=== PATIENT | female | born 1965 | race Caucasian/White ===

== ENCOUNTER 2017-08-24 15:30 | Outpatient (RCR) | payer OTHER, SELFPAY ==
--- NOTE | 2017-06-13 08:26 | HP.PTEVAL_ITS ---
Patient's Visit Information RUDI SHIN is a 52 year old F referred to Physical Therapy by MD EDD Casillas with a diagnosis of s/p L VALDEZ anterior approach in April. Date of Evaluation: 06/13/17 Physical Therapist: ELDON SneedT, OC - Visit Plan Frequency: 3x /Week Duration: 4 Weeks Plan: 3x/week for 3-4 weeks(anterior approach, precautions are ext adn abd/ext rotation combined.). 1. scar massage anterior hip. 2. Gentle hip flexor stretches and ITB stretches with rollout. 3. Teach machine based strength of hip and LE and progress to I. Include bike/elliptical to [place] for calorie burning. 4. Pt to get back to waterf ex class immediately. Monitor her tolerance to this. ice as needed. - Subjective Subjective: Apr 26 L VALDEZ, about 6 weeks ago after chronic L hip pain. 6 week f/ u went well. Pain is 0-1/10, not much pain at all. Having therapy at [facility] for 6 weeks and has now been discharged to transfer to [facility]. Scar is painfu to touch it and when she tries to work it. Has anterior incision. Sleep is good for the most part. ITB hurts to lie on L side. Has workout that she has been doing well with. Hard to do some of them on her own. 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 Will return tomorrow. Basic ADLs are OK, cannot lift heavy things/carry on L side. Hobbies : collect vinyl records and can do that. Enjoys staying activie with water ex class. - Pain L ITB Pain Intensity (Out of 10): 0 Pain Intensity Range: 0, 1 - Objective Walks I with L pelvis roatating BW at end stance due to hip flexor tightness on L. Steps are reciprocal without a problem. Trasnfers to and fro sit and supine I. Incsion is anterior L horizontal and moderate scarring apparent especially laterally. Incision is dry and healed well. Slightly numb distal to incsion. Strength in R LE 4+/5, L knee 4/5, L ankle 4+/5 adn L hip ext 4-, abd 3+, flexion 3+. Hip flexors mod tight L vs. R. ITB min tight on L adn tender distal to trochanter. Patient able to squat and recover without difficulty. - Goals Goal 1:: Walk without rotating pelvis L posterior in community. Goal Time Frame: 4-6 Weeks Goal 2:: patient back to water and gym workout I. Goal Time Frame: 4-6 Weeks Goal 3:: Back to wrok wihtout increased pain. Goal Time Frame: 2-4 Weeks - Rehabilitation Potential Physical Therapy Diagnosis: L hip stiffness and scar tissue limiting proepr mobility. Rehabilitation Potential: Fair - Anticipated Interventions Patient/Client Instruction: Educate patient on: Condition For the Purpose of:: To decrease pain, To increase ROM, To improve ability of physical actions for home/community/work/leisure, To improve gait and locomotor functions Therapeutic Exercise to Include: Strength training, Flexibilty training, Passive ROM, Active ROM For the Purpose of:: To decrease pain, To increase ROM, To improve ability of physical actions for home/community/work/leisure, To improve gait and locomotor functions Manual Therapy Techniques to Include: Scar massage, Soft tissue mobilization For the Purpose of:: To increase ROM, To improve ability of physical actions for home/community/work/leisure, To improve gait and locomotor functions Cryotherapy (ice pack, ice massage): Yes For the Purpose of:: To decrease swelling/inflammation Thank you for the opportunity to evaluate your patient. For Medicare and Medicare HMO plans, please review the plan of care and approve it. It will need to be FAXED BACK to us at [phone] for Medicare purposes. Please let me know if there are questions or concerns regarding this plan of care. Physician Signature: Date:
--- NOTE | 2017-07-05 17:19 | HP.PTREVAL_ITS ---
Ever Plasencia MD, It has been my pleasure to treat RUDI SHIN over the last 8 visits for s/p L VALDEZ anterior approach in April. Please see the progress note below for an update on the physical therapy plan of care! Subjective: Keeping strength and mobility. Improving. Scar not progressing as it stillg et tight first thing in am. Gets puffed up during the day. Scarred area is getting smaller. Pain in hip laterally intemittently, not as sore in ITB. Gets to 0-1/10. To doctor in July. Sleeping is better, can sleep on L side now with comfort. Objective/Function: ROM hip improving and more comfortable into hip extension. Scar looking improved but still proximal half of scar with mild to moderate scar tissue palpable. Strength in hip 4/5 but noticeable weakness descending steps eccentrically with L. OVERALL IMPROVING, STILL SOME WORK TO DO ON SCAR AND WITH FUNCTIONAL STRENGTH. Plan Plan: 2-3X/WEEK FOR 3 WEEKS FOR. 1. CONTINUE SCAR MASSAGE. 2. CONTINUE HIP FLEXOR STRETCHES. 3. FUNCTIONAL STRENGTH INCLUDING LUNGES, STIFFF LEGGED DEADLIFTS, SINGLE LEG SQUATS, DEEP SQUATS AND STEPS WITH WEIGHTS. pLEASE MAKE SURE PATIENT HAS MACHINE WORKOUT DOWN PAT I. Goals Goal 1:: Walk without rotating pelvis L posterior in community. Goal Time Frame: 4-6 Weeks Goal 2:: patient back to water and gym workout I. Goal Time Frame: 4-6 Weeks Goal Progress: Progressing Goal 3:: Back to wrok wihtout increased pain. Goal Time Frame: 2-4 Weeks Anticipated Interventions Patient/Client Instruction: Educate patient on: Condition For the Purpose of:: To decrease pain, To increase ROM, To improve ability of physical actions for home/community/work/leisure, To improve gait and locomotor functions Therapeutic Exercise to Include: Strength training, Flexibilty training, Passive ROM, Active ROM For the Purpose of:: To decrease pain, To increase ROM, To improve ability of physical actions for home/community/work/leisure, To improve gait and locomotor functions Manual Therapy Techniques to Include: Scar massage, Soft tissue mobilization For the Purpose of:: To increase ROM, To improve ability of physical actions for home/community/work/leisure, To improve gait and locomotor functions Cryotherapy (ice pack, ice massage): Yes For the Purpose of:: To decrease swelling/inflammation Please do not hesitate to contact me at [phone] by phone or Fax: if you have questions or concerns regarding this new plan of care! Sincerely, Huber Jones, DPT, OC
--- NOTE | 2017-07-27 16:29 | HP.PTREVAL_ITS ---
Ever Plasencia MD, It has been my pleasure to treat RUDI SHIN over the last 15 visits for s/p L VALDEZ anterior approach in April. Please see the progress note below for an update on the physical therapy plan of care! Subjective: Doing better with incision. No pain. Walking OK without limitations. activities are normal for the basics but has not carried 40# pellets up and down steps and does not think she could. Sleep is good. Work is normal. Camping will start soon. Walking on uneven. Objective/Function: 10 degrees ext, 110 flexion. 30 abduction. Steps are reciprocal and looking slightly weak on L but I without rail. L hip extension and abduction 4-, others in the hip 4 to 4+. Walks without gait deviations today but stating she needs to focus. Patient comfort level with gym exercise is not great and she remains weak in hip but is doing well otherwise. Plan Plan: 4 visits to ensure technique and progression with machines(glut ham, abd, add, leg press) and progression of RDL single leg, squat, inchworms, clamshells and bridging. Make sure technique is good and pt knows progressions. Pt will then f/u with PT after has been independent for 2 weeks. Goals Goal 1:: Walk without rotating pelvis L posterior in community. Goal Time Frame: 4-6 Weeks Goal Progress: Goal Met Goal 2:: patient back to water and gym workout I. Goal Time Frame: 4-6 Weeks Goal Progress: Goal Met Goal 3:: Back to wrok wihtout increased pain. Goal Time Frame: 2-4 Weeks Goal Progress: Goal Met Goal 4:: Pt feel confident and I with gym exercises that she can continue on own to improve strength. Goal Time Frame: 2-4 Weeks Goal Progress: NEW GOAL Anticipated Interventions Patient/Client Instruction: Educate patient on: Condition For the Purpose of:: To decrease pain, To increase ROM, To improve ability of physical actions for home/community/work/leisure, To improve gait and locomotor functions Therapeutic Exercise to Include: Strength training, Flexibilty training, Passive ROM, Active ROM For the Purpose of:: To decrease pain, To increase ROM, To improve ability of physical actions for home/community/work/leisure, To improve gait and locomotor functions Manual Therapy Techniques to Include: Scar massage, Soft tissue mobilization For the Purpose of:: To increase ROM, To improve ability of physical actions for home/community/work/leisure, To improve gait and locomotor functions Cryotherapy (ice pack, ice massage): Yes For the Purpose of:: To decrease swelling/inflammation Please do not hesitate to contact me at [phone] by phone or Fax: if you have questions or concerns regarding this new plan of care! Sincerely, Huber Jones, DPT, OC
--- NOTE | 2017-08-24 16:17 | HP.PTDCSUM_ITS ---
HP - PT D/C Summary It has been my pleasure to treat RUDI SHIN under orders from Ever Plasencia MD, for the diagnosis of s/p L VALDEZ anterior approach in April for a total of 21 visit(s). Discharge Date: 08/24/17 Please see the following information for a summary of their discharge status. - Subjective Subjective: No problems with workout. It is challenging. Lifted stuff this weekend to clean out daughter's basement. Carried 40# bag dogfood without even thinking about it. Sleeping is good. Activities pretty normal at home. Confident climbing on camper roof. - Pain L ITB Pain Intensity (Out of 10): 0 - Overall Improvement % Improvement: 90 - Objective Objective/Function: ROM L hip to 110 flexion gently, 30 abd, 10 extension with slight tightness in hip flexors. Walks without deficitis. Steps reciprocal without a problem, double steps slightly weak on left. - Goals Goal 1:: Walk without rotating pelvis L posterior in community. Goal Progress: Goal Met Goal 2:: patient back to water and gym workout I. Goal Progress: Goal Met Goal 3:: Back to [employer] wihtout increased pain. Goal Progress: Goal Met Goal 4:: Pt feel confident and I with gym exercises that she can continue on own to improve strength. Goal Progress: Goal Met - Plan Plan: D/C - D/C Information Discharge Comments: Pt doing well and ready to be on own. Will f/u with doctor in April per plan. If there are questions or concerns regarding this patient's physical therapy, please feel free to call me at [phone]. Thank you for the referral of this patient. Sincerely, Huber Jones, DPT, OC
== END 2017-08-24 19:00 | disposition home or self-care (01) ==
LOC: PT 15:30
PROVIDERS: Family Provider Family Medicine; PCP Family Medicine; Visit Provider Specialist
DX: Z96.642 Presence of left artificial hip joint (principal); M76.32 Iliotibial band syndrome, left leg
CPT/HCPCS: 97110; 97140; 97161; 97530

== ENCOUNTER 2019-11-30 10:00 | Outpatient (RCR) | payer OTHER, SELFPAY ==
--- NOTE | 2019-11-07 11:52 | HP.PTEVAL_ITS ---
Patient's Visit Information RUDI SHIN is a 54 year old F referred to Physical Therapy by Dr. Ever Plasencia MD with a diagnosis of L shoulder tendosynovitis. Date of Evaluation: 11/07/19 Physical Therapist: Huber Jones, DPT, OCS, CSCS - Visit Plan Frequency: 3x /Week Duration: 4-6 Weeks Plan: 3x/week for 3-6 for. US non thermal L supraspinatus. grade 1-2 g-h mobs L. scap, ostural ad RC strength on L. IF ES if pain at rest. Monitor for appropriate activitiy modification - Subjective L shoulder hurt insidiously. Last 6 months have hurt for no apparent reason. Massage did not help. Tried shifting desks at work. Pain is anterior L shoulder. Comfortable at rest after cortisone shot Tuesday. Sore from the shot today. Helped 50%. Pain this week to 6/10 before shot adn now 3/10 depending james ctivity. Worse wtih reaching forward, behind. Taking off shirt hurts. Lifting away from body hurts. Sleep is not a problem since the shot but did lie on L side prior to injection. Was hard to move L UE in bed. Denies numbness or tingling. Pain does shoot to elbow at times. 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 Activities at home are interrupted, no heavy lifting, litter box is tough. Dtr helps change litter. Carrying heavy bed sheets is hard. - Pain L shoulder Pain Intensity (Out of 10): 0 Pain Intensity Range: 0, 6 - Objective L shoulder tender at supraspinatus tendon max adn biceps tendon min. Posture is forward head and scapula and elevated scap B. + HK and neer on L, - ext rotatio n lag test, - labral, - drop arm. reflexes 2/3 bi adn tri B. AROM L shoulder end range IR and ER are painful as is long lever arm elevation. Full aROM though. Sensation WNl to gross light touch in UE. Strength is 4- in ext rotation L and painful, IR 4+, bi and tri 4+, elevation painful 4- on L and 4+ throughout on R. Scapual move well B except depression is limited and tight. C/S aROM WFL and without pain. - Goals Goal 1:: Full L shoulder AROM without pain. Goal Time Frame: 4-6 Weeks Goal 2:: Patient feel 80% better in pain levels to 1/10 at worst Goal Time Frame: 4-6 Weeks Goal 3:: Sleep without waking due to pain x 2 weeks. Goal Time Frame: 4-6 Weeks Goal 4:: I approp HEP and activitiy modification to avoid future activities. Goal Time Frame: 4-6 Weeks Goal 5:: Quick DASH of <15 Goal Time Frame: 4-6 Weeks - Rehabilitation Potential Physical Therapy Diagnosis: L supraspinatus tendonits Rehabilitation Potential: Good - Anticipated Interventions Patient/Client Instruction: Educate patient on: Condition, Plan of Care For the Purpose of:: To decrease pain, To increase ROM, To improve muscle performance and motor function, To increase tolerance to activity/condition/position, To improve ability of physical actions for home/community/work/leisure Therapeutic Exercise to Include: Strength training, Postural training, Flexibilty training, Dynamic Lumbar Stabilization, Scapular Strength/Stabilization For the Purpose of:: To decrease pain, To increase ROM, To improve muscle performance and motor function, To improve ability of physical actions for home/community/work/leisure Manual Therapy Techniques to Include: Mobilization, Soft tissue mobilization For the Purpose of:: To decrease pain, To increase ROM, To improve muscle performance and motor function, To improve ability of physical actions for home/community/work/leisure IF ES: Yes Cryotherapy (ice pack, ice massage): Yes Ultrasound (thermal/non thermal): Yes For the Purpose of:: To decrease pain Thank you for the opportunity to evaluate your patient. For Medicare and Medicare HMO plans, please review the plan of care and approve it. It will need to be FAXED BACK to us at [phone] for Medicare purposes. For Medicare only, by signing this I certify the plan of care. Please let me know if there are questions or concerns regarding this plan of care. Physician Signature: Date:
--- NOTE | 2019-11-30 10:38 | HP.PTDCSUM_ITS ---
It has been my pleasure to treat RUDI SHIN referred by Dr. Ever Plasencia MD, with the diagnosis of L shoulder tendosynovitis for a total of 8 visit(s). Discharge Date: 11/30/19 Please see the following information for a summary of their discharge status. Subjective: Better. Less pain and can sleep at night. Pain currently is rare 1/10. ) currently adn all week. Reaching out with weights. Activites are pretty normal. Winter will be the test with 40# bags. Doing HEP 3x15 L shoulder Pain Intensity (Out of 10): 0 % Improvement: 99 Objective/Function: Full aROM without pain today. Strength is good in neutral position, slight pain with IR/ER at 80 abduction but transient. Moving well adn happy with progress and will cotninue via HEP. Goal 1:: Full L shoulder AROM without pain. Goal Progress: Goal Met Goal 2:: Patient feel 80% better in pain levels to 1/10 at worst Goal Progress: Goal Met Goal 3:: Sleep without waking due to pain x 2 weeks. Goal Progress: Goal Met Goal 4:: I approp HEP and activitiy modification to avoid future activities. Goal Progress: Goal Met Goal 5:: Quick DASH of <15 Plan: d/information technology instructor HEP If there are questions or concerns regarding this patient's physical therapy, please feel free to call me at [phone]. Thank you for the referral of this patient. Sincerely, Huber Jones, DPT, OCS, CSCS
== END 2019-11-30 19:00 | disposition home or self-care (01) ==
LOC: PT 10:00
PROVIDERS: PCP Internal Medicine; Referring Provider Specialist; Visit Provider Specialist
DX: M65.812 Other synovitis and tenosynovitis, left shoulder (principal); M25.512 Pain in left shoulder; R53.1 Weakness
CPT/HCPCS: 97035; 97110; 97140; 97161; 97164

== ENCOUNTER 2021-04-10 09:00 | Outpatient (RCR) | payer OTHER, SELFPAY ==
--- NOTE | 2021-03-18 07:55 | HP.OTEVAL_ITS ---
Patient's Visit Information RUDI SHIN is a 56 year old F, referred to Occupational Therapy by SANCHEZ GUTIERREZ, with a diagnosis of ganglion cyst. Date of Evaluation: 03/17/21 Occupational Therapist: Sima Gardner, MALIKA/Pascale, CHT - Subjective This 56 year old female was seen for OT eval with dx of ganglion cyst of volar aspect of right wrist. occt. 2020. states 2008 initial ganglion was removed- order for increase wrist ROM and strength without restriction to pain tolerance , wrist brace when active scar and soft tissue mobilization and modalities for pain. pt stats she works at [employer]. pt states she would like to return to her PLOF- - Pain right hand 1 - ROM Wrist: right 60/50 left 75/75 - Strength Associate Account Executive: right 40# left 60# Lateral Pinch: right 8# left 8# Tripod Pinch: right 4# left 18# - Sensation Sensation Comments: denies - Quick DASH-Disab of Arm,Shoulder& Hand Quick DASH Score: 78.3325 - Goals Goal:: pt will demo a increase in right medical artist by 10# or greater by d.c to increase pts ind. with ADLs and IADLS. Pt will demo an increase in lateral and tripod pinch by 2# to increase pts independent with opening baggies, containers at PLOF by D/C. Goal:: Pt will demo an increase in wrist ROM equal to unaffected wrist to return pt to PLOF with grooming, dressing and home mtg tasks by D/C. Goal:: Pt will report pain no greater than 1/10 with use of affected hand with BADLs and IADLs by d/c. Goal:: Pt will demo understanding of scar mtg. by end of 2nd session to increase tissue extensibility to limit scar adhesions and allow full tendons function by d/c. Pt will demo a decrease is scar sensitivity to tolerate wearing long sleeve shirts by D/c. - Rehabilitation General Assessment: pt s/p 2 weeks 4 day from ganglion cyst removal from STT joint and adhering to FCR. pt demo with limited ROM and strength decreasing her ind. with ADLs and IADls - pt demo need for skilled OT services 2-3x week for 6 weeks to return pt to PLOF. Today therapist ed pt on AROM, AAROM and scar mtg. pt demo understanding of given exercise and agrees to POC. Rehabilitation Potential: Good - Anticipated Interventions A/AAROM/PROM, Strengthening, Scar Care, Desensitization, Sensory Retraining, Modalities, Ergonomic Education, Education re assistive Equipment, Education re Diagnosis, Home Program - Visit Plan Frequency: 2-3x /Week TEXT: Thank you for the opportunity to evaluate your patient. For Medicare and Medicare HMO plans, please review the plan of care and approve it. It will need to be FAXED BACK to us at [phone] for Medicare purposes. Please let me know if there are questions or concerns regarding this plan of care. Physician Signature: Date:
--- NOTE | 2021-04-08 12:19 | OTREVAL_ITS ---
SANCHEZ GUTIERREZ, It has been my pleasure to treat RUDI SHIN over the last 10 visits for ganglion cyst. Please see the progress note below for an update on the occupational therapy p michelle of care! Subjective: pt arrives to OT 6 weeks s/p from ganglion cyst removal- pt has returned to work and states work is going well- states she has to take more breaks due to fatigue holding the mouse and moving it at work. pt reports she continues to get a burring sensation and scar sensitivity is 50% better. Objective/Function: right wrist 65/65 this is increase from 60/50. right oil dispatcher strength 47# a increase from 40#. right lateral pinch 10# increase from 8#. right tripod pinch 6# increase from 4#. pt continues to have pain with daily use of her right UE with ADLs and IADLs pt reports nothing grater than 3/10. pt continues to have weakness and poor endurance for job tasks. will continue with PRE to assist pt to reach her PLOF. Plan Frequency: 1-2x /Week Duration: 3 Weeks Plan: Cont BTE and strengthening as tolerated- pt to continue with scar desensitization and return to normal use of right hand with ADLs and work tasks. Advised pt not to increase pain greater than 3/10 with use. pt demo understanding. Goals - Goals Patient Goals: Regain Mobility, Use Hand/Wrist/Arm Normally Again Goal:: pt will demo a increase in right oil dispatcher by 10# or greater by d.c to increase pts ind. with ADLs and IADLS. Pt will demo an increase in lateral and tripod pinch by 2# to increase pts independent with opening baggies, containers at PLOF by D/C. Goal:: Pt will demo an increase in wrist ROM equal to unaffected wrist to return pt to PLOF with grooming, dressing and home mtg tasks by D/C. Goal:: Pt will report pain no greater than 1/10 with use of affected hand with BADLs and IADLs by d/c. Goal:: Pt will demo understanding of scar mtg. by end of 2nd session to increase tissue extensibility to limit scar adhesions and allow full tendons function by d/c. Pt will demo a decrease is scar sensitivity to tolerate wearing long sleeve shirts by D/c. Anticipated Interventions Anticipated Interventions: A/AAROM/PROM, Strengthening, Scar Care, Desensitization, Sensory Retraining, Modalities, Ergonomic Education, Education re assistive Equipment, Education re Diagnosis, Home Program Please do not hesitate to contact me at [phone] by phone or if you have questions or concerns regarding this new plan of care! Sincerely, Sima Gardner, OTR/L, CHT
--- NOTE | 2021-04-10 09:31 | HP.OTDCSUM ---
It has been my pleasure to treat RUDI SHIN under orders from SANCHEZ GUTIERREZ, for the diagnosis of ganglion cyst for a total of 11 visit(s). Please see the following information for a summary of their discharge status. % Improvement: 50 Objective/Function: right wrist 65/65 this is increase from 60/50. right commercial real estate underwriter strength 47# a increase from 40#. right lateral pinch 10# increase from 8#. right tripod pinch 6# increase from 4#. pt continues to have pain with daily use of her right UE with ADLs and IADLs pt reports nothing grater than 3/10. pt continues to have weakness and poor endurance for job tasks. will continue with PRE to assist pt to reach her PLOF. Patient Goals: Regain Mobility, Use Hand/Wrist/Arm Normally Again Goal:: pt will demo a increase in right commercial real estate underwriter by 10# or greater by d.c to increase pts ind. with ADLs and IADLS. Pt will demo an increase in lateral and tripod pinch by 2# to increase pts independent with opening baggies, containers at PLOF by D/C. Goal:: Pt will demo an increase in wrist ROM equal to unaffected wrist to return pt to PLOF with grooming, dressing and home mtg tasks by D/C. Goal:: Pt will report pain no greater than 1/10 with use of affected hand with BADLs and IADLs by d/c. Goal:: Pt will demo understanding of scar mtg. by end of 2nd session to increase tissue extensibility to limit scar adhesions and allow full tendons function by d/c. Pt will demo a decrease is scar sensitivity to tolerate wearing long sleeve shirts by D/c. Plan: D/C Discharge Comments: pt was seen for 7 OT visits - pt has met goals in OT and currently d/c with HEP of scar mtg, PROM and PRE. pt demo understanding and agree to D.C If there are questions or concerns regarding this patient's occupational therapy, please fell free to call me at [phone]. Thank you for the referral of this patient. Sincerely, Sima Gardner, OTR/L, CHT
== END 2021-04-10 13:06 | disposition home or self-care (01) ==
LOC: OT 09:00
PROVIDERS: PCP Family Medicine
DX: M67.431 Ganglion, right wrist (principal); Z98.890 Other specified postprocedural states; M65.9 Synovitis and tenosynovitis, unspecified
CPT/HCPCS: 97035; 97110; 97140; 97166; 97530

== ENCOUNTER → 2021-11-05 | Outpatient (CLI) | payer OTHER, SELFPAY ==
[2021-11-05 13:11] LABS: Ferritin 39 ng/mL (8-252); T4 Free Direct 1.39 ng/dL (0.76-1.46); Thyroid Stim Hormone (TSH) 0.05 uIU/mL (0.358-3.74); Vitamin B12 232 pg/mL (211-911)
[2021-11-05 13:25] LABS: Hemoglobin A1c 5.5 % (3.8-5.6)
== END | disposition home or self-care (01) ==
LOC: BIMLAB 10:05
PROVIDERS: PCP Family Medicine; Referring Provider Internal Medicine Endocrinology, Diabetes & Metabolism; Visit Provider Internal Medicine Endocrinology, Diabetes & Metabolism
DX: E03.8 Other specified hypothyroidism (principal); E06.3 Autoimmune thyroiditis; E55.9 Vitamin D deficiency, unspecified; R53.83 Other fatigue; Z83.3 Family history of diabetes mellitus
CPT/HCPCS: 36415; 82306; 82607; 82728; 83036; 84439; 84443

== ENCOUNTER → 2022-04-16 | Outpatient (CLI) | payer OTHER, SELFPAY ==
[2022-04-16 14:03] LABS: T4 Free Direct 1.07 ng/dL (0.76-1.46); Thyroid Stim Hormone (TSH) 1.52 uIU/mL (0.358-3.74)
== END | disposition home or self-care (01) ==
LOC: LAB 11:42
PROVIDERS: PCP Family Medicine; Visit Provider Internal Medicine Endocrinology, Diabetes & Metabolism
DX: E03.8 Other specified hypothyroidism (principal); E06.3 Autoimmune thyroiditis
CPT/HCPCS: 36415; 84439; 84443

== ENCOUNTER → 2023-08-10 | Outpatient (CLI) | payer OTHER, SELFPAY ==
[2023-08-10 09:49] LABS: Hemoglobin A1c 5.8 % (3.8-5.6)
[2023-08-10 09:53] LABS: AST(SGOT) 16 U/L (15-37); Alanine Aminotransfer ALT/SGPT 30 U/L (13-56); Albumin, Serum 3.6 g/dL (3.2-5.0); Alkaline Phosphatase 81 U/L (45-117); Anion Gap 5 (5-15); BUN 14 mg/dL (7-18); BUN/Creat Ratio 15.8 RATIO (10-20); Calcium,Total 8.7 mg/dL (8.5-10.1); Chloride 106 mmol/L (98-107); Cholesterol 248 mg/dL (200); Creatinine, Serum 0.89 mg/dL (0.55-1.02); EST Glomerular Filtration Rate 69 mL/min (>60); Est Glom Filt Rate - Afr Amer 84 mL/min (>60); Globulin 3.6 g/dL (2.2-4.2); Glucose 98 mg/dL (74-106); High Density Lipoprotein 66 mg/dL; Protein, Total 7.2 g/dL (6.4-8.2); Sodium Level 138 mmol/L (136-145); T4 Free Direct 1.27 ng/dL (0.76-1.46); Thyroid Stim Hormone (TSH) 1.06 uIU/mL (0.358-3.74); Triglycerides 115 mg/dL; Very Low Density Lipoprotein 23 mg/dL (5-40)
== END | disposition home or self-care (01) ==
LOC: LAB 08:29
PROVIDERS: PCP Family Medicine; Referring Provider Internal Medicine Endocrinology, Diabetes & Metabolism; Visit Provider Internal Medicine Endocrinology, Diabetes & Metabolism
DX: I10 Essential (primary) hypertension (principal); E03.8 Other specified hypothyroidism; E06.3 Autoimmune thyroiditis; E78.5 Hyperlipidemia, unspecified; R73.09 Other abnormal glucose
CPT/HCPCS: 36415; 80053; 80061; 83036; 84439; 84443

== ENCOUNTER 2023-10-04 15:30 | Outpatient (RCR) | payer OTHER, SELFPAY ==
--- NOTE | 2023-08-03 15:48 | HP.OTEVAL_ITS ---
Patient's Visit Information Visit Information Visit Information: RUDI SHIN is a 58 year old F, referred to Occupational Therapy by JOEY WILLS, with a diagnosis of ganglion cysts removal. Date of Evaluation: 08/03/23 Occupational Therapist: Sima Gardner, SAMPSONR/Pascale, CHT Subjective Subjective: This 58 year old female was seen for OT eval with dx of Ganglion cyst of left wrist. Pt underwent excision of ganglion cyst on 07/22/23. had stitches out on 08/01/23. Pt states she is right handed pt is to return to work August 22 2023 - works 44 hour in a week [place] 3 days in office- pt is also doing Physical therapy for a fall she suffered at work in [place]. pt states she would just like to return to her PLOF with using bilateral hands with all ADls and IADLs. ADLs Comments: currently is helping with all ADls and IADls at this time. Pain left wrist/hand: Current Pain Intensity: 3 Pain Intensity Range: 5 ROM Wrist: right 65/70 left 35/40 pt states slight pulling sensation at incisions ROM Comments: full digital ROM Strength Advertising Executive: right 70# left NT Lateral Pinch: right 20# left NT Tripod Pinch: right 18# left NT Strength Comments: will test strength at week 4 s/p Quick DASH-Disab of Arm,Shoulder& Hand Quick DASH Score: 66.6650 Goals Goal:Daily scar massage when approriate: Yes Goal:ROM equal to unaffected hand: Yes Goal:Advertising Executive/Pinch strength at least 75% of unaffected hand: Yes Comment: will initiate at week s/p4 as pt shara. Goal:No pain with affected hand use: Yes Goal:Full use of affected hand in daily activities including work: Yes Goal:Decrease scar hypersensitivity: Yes Comment: to wear long sleeves and tolerate touch to scars Rehabilitation General Assessment: pt arrives 1 week and 5 days s/p from ganglion cysts removal. pt demo with limited left wrist ROM and scar sensitivity that has increased the need of assistance with her ADLs and IADLS. pt would benefit from skilled OT services 1-2x week for 4 weeks to return pt to her PLOF. Today therapist ed. pt on active range of motion, tendon glide and scar mtg. pt demo understanding and agree to POC. Rehabilitation Potential: Good Anticipated Interventions Anticipated Interventions: A/AAROM/PROM, Strengthening, Scar Care, Triggerpoint Release, Desensitization, Sensory Retraining, Modalities, Orthoses, Joint Protection/Energy Conservation, Ergonomic Education, ADL Training and Home Program Visit Plan Frequency: 1-2x /Week Duration: 4-6 Weeks General Plan: gain full ROM scar mtg wean out of brace PRE as shara at week 4 unless otherwise specified by TEXT: Thank you for the opportunity to evaluate your patient. For Medicare and Medicare HMO plans, please review the plan of care and approve it. It will need to be FAXED BACK to us at [phone] for Medicare purposes. Please let me know if there are questions or concerns regarding this plan of care. Physician Signature: Date:
--- NOTE | 2023-10-04 15:55 | HP.OTDCSUM_ITS ---
Discharge Summary D/C Summary: It has been my pleasure to treat RUDI SHIN under orders from JOEY WILLS, for the diagnosis of ganglion cysts removal for a total of 17 visit(s). Please see the following information for a summary of their discharge status. Overall Improvement % Improvement: 80 Objective Objective/Function: left wrist 65/[address] 20 left wrist UD 25 R Stock Grader:75# L Stock Grader: 65# increase from 50# L Tripod Grasp: 12# L Lateral Grasp: 10# pt demo great gains with ROM and strength. scar continues to be sensitive and this limits her with IADLs. pt agrees to with scar mtg. desensitization for her HEP. pt agrees with d/c. Goals Patient Goals: Regain Mobility, Use Hand/Wrist/Arm Normally Again and Be More Independent in ADLS Goal Progress: Goal Met Goal:Daily scar massage when approriate: Yes Goal Progress: Goal Met Goal:ROM equal to unaffected hand: Yes Goal Progress: Goal Met Goal:Stock Grader/Pinch strength at least 75% of unaffected hand: Yes Goal:No pain with affected hand use: Yes Goal Progress: Progressing Goal:Full use of affected hand in daily activities including work: Yes Goal Progress: Progressing Goal:Decrease scar hypersensitivity: Yes Goal Progress: Progressing Other Goal: 75-80% better Plan Plan: start BTE to increase construction materials tester wrist and forearm sup/pron D/C Information Discharge Comments: pt was seen for 17 OT sessions following cyst removal- pt made great gains with ROM and strength- pt continues to have pain at ulnar side of wrist ( little bit) but pt has returned to her ADLs and IADLs. Pt scar is sensitive and she will cont. with a HEP and desensitization- pt agree with d/c d/c sentence: If there are questions or concerns regarding this patient's occupational thera py, please fell free to call me at [phone]. Thank you for the referral of this patient. Sincerely, Sima Gardner, OTR/L, CHT
== END 2023-10-04 19:00 | disposition home or self-care (01) ==
LOC: OT 15:30
PROVIDERS: PCP Family Medicine
DX: M67.432 Ganglion, left wrist (principal); Z98.890 Other specified postprocedural states
CPT/HCPCS: 97110; 97140; 97166; 97530

== ENCOUNTER → 2024-08-06 | Outpatient (CLI) | payer OTHER, SELFPAY ==
[2024-08-06 11:23] LABS: ALB/GLOB Ratio 1.7 RATIO (0.9-2.4); AST(SGOT) 21 U/L (<=31); Alanine Aminotransfer ALT/SGPT 15 U/L (<=34); Albumin, Serum 4.3 g/dL (3.5-5.0); Alkaline Phosphatase 82 U/L (35-104); Anion Gap 12 (5-15); BUN 14 mg/dL (4-19); BUN/Creat Ratio 15.4 RATIO (10-20); Calcium,Total 9.3 mg/dL (7.6-11.0); Carbon Dioxide 26.2 mmol/L (21.0-32.0); Chloride 104 mmol/L (98-108); Cholesterol 187 mg/dL (<=200); Creatinine, Serum 0.88 mg/dL (0.70-1.20); EST Glomerular Filtration Rate 75 (>60); Globulin 2.6 g/dL (2.2-4.2); Glucose 97 mg/dL (70-99); High Density Lipoprotein 59 mg/dL; Low Density Lipoprotein Calc. 98 mg/dL; Protein, Total 6.9 g/dL (5.9-8.4); Sodium Level 142 mmol/L (133-145); Total Bilirubin 0.35 mg/dL (0.00-1.30); Triglycerides 152 mg/dL; Very Low Density Lipoprotein 30 mg/dL (5-40); cholesterol:hdl ratio screen 3.19
== END | disposition home or self-care (01) ==
PROVIDERS: PCP Family Medicine; Referring Provider Internal Medicine Cardiovascular Disease; Visit Provider Internal Medicine Cardiovascular Disease
DX: E78.5 Hyperlipidemia, unspecified (principal)
CPT/HCPCS: 36415; 80053; 80061

== ENCOUNTER → 2024-08-10 | Outpatient (CLI) | payer OTHER, SELFPAY ==
[2024-08-10 09:44] LABS: Thyroid Stim Hormone (TSH) 0.649 uIU/mL (0.300-4.200)
== END | disposition home or self-care (01) ==
LOC: LAB 08:33
PROVIDERS: PCP Family Medicine; Referring Provider Internal Medicine Endocrinology, Diabetes & Metabolism; Visit Provider Internal Medicine Endocrinology, Diabetes & Metabolism
DX: I10 Essential (primary) hypertension (principal); E03.8 Other specified hypothyroidism; E06.3 Autoimmune thyroiditis; E78.2 Mixed hyperlipidemia; R73.09 Other abnormal glucose
CPT/HCPCS: 36415; 84443

== ENCOUNTER 2024-11-15 15:30 | Outpatient (RCR) | payer OTHER, SELFPAY ==
--- NOTE | 2024-08-24 14:30 | HP.PTEVAL_ITS ---
Patient's Visit Information Visit Information Visit Information: RUDI SHIN is a 59 year old F referred to Physical Therapy by José Luis Regan MD with a diagnosis of R ankle peroneal tendonitis. Date of Evaluation: 08/24/24 Physical Therapist: Brandon Parham, PT, ATC Visit Plan Frequency: 2x /Week Duration: 4-6 Weeks Plan: R ankle PROM/mobs, distraction, gastroc rollout and hawksgrip, ECC or pr ogressive strengthening, and HEP Subjective Subjective: Pt reports she has had R ankle pain since fracturing her R ankle in 2022. Pt reports she had PT after that for several months, which she felt really good afterwards. Pt notes then she fell again on [employer] of last year where she sprained her ankle again. Pt notes she had PT for 13 visits afterwards, but no sucess this time. Pt notes she was referred to a different doctor. Pt reports now she has R ankle peroneal tendonitis and synovitis. Pt reports she has a lot of pain while trying to sleep now. Pt reports her R ankle cracks and pops a lot, which makes it feel better in the short time period, but the pain always returns. 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 Pt reports she has had xrays and an MRI which revealed the tendonitis and synovitis. Pt has stairs at home and can negotiate them reciprocally. Pt notes she was exercising prior to this injury, but notes she is unable to perform that for a prolonged period of time secondary to pain. Pt denies tingling or numbness in R LE. 2/10 pain while sitting here at rest, 6/10 at worst (when she is walking at work) Pain R ankle: Pain Intensity (Out of 10): 2 Pain Intensity Range: 6 Objective Objective: Neuro: B LE sensation is WNL to light touch. B patellar reflex= 3+/3 Palpation: Pt is tender with light touch throughout the distribution of the R peroneal tendon. Pain also on lateral calcaneous. No obvious deformity today. ROM: L ankle DF= 2, PF= 65; R ankle DF= -2, PF= 65 degrees MMT: L ankle DF= 31, PF= 44; R ankle DF= 21, PF= 41 #F Balance/Special Test Scores Lower Extremity Functional Score: 41 Goals Goal 1:: Decrease R ankle pain x 50% to aid with sleep Goal Time Frame: 4-6 Weeks Goal 2:: Increase R ankle DF ROM to 10 degrees to aid with decreasing pain Goal Time Frame: 4-6 Weeks Goal 3:: Increase R ankle DF strength to 25-30 #F to aid with increasing tolerance to ambulation Goal Time Frame: 4-6 Weeks Goal 4:: I with HEP Goal Time Frame: 4-6 Weeks Rehabilitation Potential Physical Therapy Diagnosis: Pt has R ankle pain, weakness, and limited DF ROM secondary to R ankle peroneal tendonitis Rehabilitation Potential: Good Anticipated Interventions Patient/Client Instruction: Educate patient on: Condition and Plan of Care For the Purpose of:: To improve self management Therapeutic Exercise to Include: Strength training, Endurance training, Balance training, Flexibilty training, Passive ROM and Active ROM For the Purpose of:: To decrease pain, To increase ROM and To improve muscle performance and motor function Text: Thank you for the opportunity to evaluate your patient. For Medicare and Medicare HMO plans, please review the plan of care and approve it. It will need to be FAXED BACK to us at [phone] for Medicare purposes. For Medicare only, by signing this I certify the plan of care. Please let me know if there are questions or concerns regarding this plan of care. Physician Signature: Date :
--- NOTE | 2024-10-22 16:44 | HP.PTREVAL ---
Re-Evaluation Intro: José Luis Regan MD, It has been my pleasure to treat RUDI SHIN over the last 16 visits for R ankle peroneal tendonitis. Please see the progress note below for an update on the physical therapy plan of care! Subjective Subjective: I am getting better. I would like to try this on my own for a while Objective Objective/Function: R ankle pain ranges from 1-5/10 R ankle DF ROM 4 degrees R ankle DF MMT 36 #F Pt is I with HEP Plan Plan Plan: Follow up or discharge in one month Balance/Gait/Functional tests Balance/Special Test Scores Lower Extremity Functional Score: 56 Goals Goals Goal 1:: Decrease R ankle pain x 50% to aid with sleep Goal Time Frame: 4-6 Weeks Goal Progress: Progressing Goal 2:: Increase R ankle DF ROM to 10 degrees to aid with decreasing pain Goal Time Frame: 4-6 Weeks Goal Progress: Progressing Goal 3:: Increase R ankle DF strength to 25-30 #F to aid with increasing tolerance to ambulation Goal Time Frame: 4-6 Weeks Goal Progress: Goal Met Goal 4:: I with HEP Goal Time Frame: 4-6 Weeks Goal Progress: Goal Met Anticipated Interventions Anticipated Interventions Patient/Client Instruction: Educate patient on: Condition and Plan of Care For the Purpose of:: To improve self management Therapeutic Exercise to Include: Strength training, Endurance training, Balance training, Flexibilty training, Passive ROM and Active ROM For the Purpose of:: To decrease pain, To increase ROM and To improve muscle performance and motor function Re-Evaluation Ending Re-evaluation ending: Please do not hesitate to contact me at [phone] by phone or if you have questions or concerns regarding this new plan of care! Sincerely, Brandon Parham, PT, ATC
--- NOTE | 2024-10-23 08:51 | HP.OTEVAL ---
Patient's Visit Information Visit Information Visit Information: RUDI SHIN is a 59 year old F, referred to Occupational Therapy by José Luis Regan MD, with a diagnosis of L deQuarvains. Date of Evaluation: 10/23/24 Occupational Therapist: Bridgett Triplett Subjective Subjective: pt presenting with trigger finger of L middle finger and DeQuarvains on L wrist. Surgery on 08/03 to release the trigger finger with difficulty to get full ROM with MP extension and pain along dorsal aspect of PIP/DIP joints in extension under pressure. pt with significant hx of cyst removals on both wrists. 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 c/o swelling and stiffness in L D3, increased pain and swelling in the morning. Not wearing night splints currently but advising to wear them to keep from clenching in a fisted position over night. ROM Forearm: WFL Wrist: WFL MP: L D3 -15/85 PIP: L D3 0/85 DIP: L D3 0/75 Strength Golf Superintendent: R 60#, L 34# Lateral Pinch: R 13#, L 10# Tip-to-Tip Pinch: R 12#, L 8# Edema Proximal Phalanx: L 6.5cm, R 5.9cm In-Hand Manipulation Finger to Palm Translation: Normal - Left Palm to Finger Translation: Mild - Left Quick DASH-Disab of Arm,Shoulder& Hand Quick DASH Score: 34.0900 Goals Goal:: pt to demo improved L bone process operator strength by 15# by d/c for greater ability to grasp items during ADL tasks using non dominant hand pt to demo improved L tip pinch strength by 2# for greater use during tool use tasks Goal:: pt to demo improved L D3 MP extension by 10* for greater use during keyboarding to reach top keys Goal:: pt to demo no more than 2/10 pain during daily activities or HEP tasks Goal:: pt to demo reduced edema at L D3 proximal phalanx by.3cm Goal:: pt to demo improved overall indep at home by reduced DASH score by 20 points Rehabilitation General Assessment: Pt here for s/p trigger finger surgery, script is reading [facility] however more c/o trigger finger surgery. Pt presenting with lingering scar tissue along L D3 flexor tissues preventing full MP extension which is limiting her function at work (typing). Pt with decreased bone process operator/pinch strength in L hand as well as increased swelling in L D3 proximal phalanx as compared to right hand. Pt wanting pain reduction along palm and increased digit extension to improve indpe and endurance at work. Pt would benefit from skills OT services x2/week for 4 weeks for greater improvement in swelling, AROM and strength to increase indep. Rehabilitation Potential: Good Anticipated Interventions Anticipated Interventions: A/AAROM/PROM, Strengthening, Edema Control, Massage, Triggerpoint Release and Joint Protection/Energy Conservation Visit Plan Frequency: 2x /Week Duration: 4 Weeks TEXT: Thank you for the opportunity to evaluate your patient. For Medicare and Medicare HMO plans, please review the plan of care and approve it. It will need to be FAXED BACK to us at [phone] for Medicare purposes. Please let me know if there are questions or concerns regarding this plan of care. Physician Signature: Date:
--- NOTE | 2024-10-23 08:51 | HP.OTEVAL ---
Patient's Visit Information Visit Information Visit Information: RUDI SHIN is a 59 year old F, referred to Occupational Therapy by José Luis Regan MD, with a diagnosis of L deQuarvains. Date of Evaluation: 10/23/24 Occupational Therapist: Bridgett Triplett Subjective Subjective: pt presenting with trigger finger of L middle finger and DeQuarvains on L wrist. Surgery on 08/03 to release the trigger finger with difficulty to get full ROM with MP extension and pain along dorsal aspect of PIP/DIP joints in extension under pressure. pt with significant hx of cyst removals on both wrists. 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 c/o swelling and stiffness in L D3, increased pain and swelling in the morning. Not wearing night splints currently but advising to wear them to keep from clenching in a fisted position over night. ROM Forearm: WFL Wrist: WFL MP: L D3 -15/85 PIP: L D3 0/85 DIP: L D3 0/75 Strength Manager Assisted Living: R 60#, L 34# Lateral Pinch: R 13#, L 10# Tip-to-Tip Pinch: R 12#, L 8# Edema Proximal Phalanx: L 6.5cm, R 5.9cm In-Hand Manipulation Finger to Palm Translation: Normal - Left Palm to Finger Translation: Mild - Left Quick DASH-Disab of Arm,Shoulder& Hand Quick DASH Score: 34.0900 Goals Goal:: pt to demo improved L paint roller covers supervisor strength by 15# by d/c for greater ability to grasp items during ADL tasks using non dominant hand pt to demo improved L tip pinch strength by 2# for greater use during tool use tasks Goal:: pt to demo improved L D3 MP extension by 10* for greater use during keyboarding to reach top keys Goal:: pt to demo no more than 2/10 pain during daily activities or HEP tasks Goal:: pt to demo reduced edema at L D3 proximal phalanx by.3cm Goal:: pt to demo improved overall indep at home by reduced DASH score by 20 points Rehabilitation General Assessment: Pt here for s/p trigger finger surgery, script is reading [employer] however more c/o trigger finger surgery. Pt presenting with lingering scar tissue along L D3 flexor tissues preventing full MP extension which is limiting her function at work (typing). Pt with decreased paint roller covers supervisor/pinch strength in L hand as well as increased swelling in L D3 proximal phalanx as compared to right hand. Pt wanting pain reduction along palm and increased digit extension to improve indpe and endurance at work. Pt would benefit from skills OT services x2/week for 4 weeks for greater improvement in swelling, AROM and strength to increase indep. Rehabilitation Potential: Good Anticipated Interventions Anticipated Interventions: A/AAROM/PROM, Strengthening, Edema Control, Massage, Triggerpoint Release and Joint Protection/Energy Conservation Visit Plan Frequency: 2x /Week Duration: 4 Weeks TEXT: Thank you for the opportunity to evaluate your patient. For Medicare and Medicare HMO plans, please review the plan of care and approve it. It will need to be FAXED BACK to us at [phone] for Medicare purposes. Please let me know if there are questions or concerns regarding this plan of care. Physician Signature: Date:
== END 2024-11-15 17:10 | disposition home or self-care (01) ==
LOC: OT 15:30
PROVIDERS: PCP Family Medicine; Referring Provider Orthopaedic Surgery Foot and Ankle Surgery; Visit Provider Orthopaedic Surgery Foot and Ankle Surgery
DX: M65.971 Unspecified synovitis and tenosynovitis, right ankle and foot (principal); M76.71 Peroneal tendinitis, right leg
CPT/HCPCS: 97035; 97110; 97140; 97161; 97165; 97530

== ENCOUNTER → 2024-12-28 | Outpatient (CLI) | payer OTHER, SELFPAY ==
[2024-12-28 09:45] LABS: CORTISOL AM 12.60 ug/dL (6.02-18.40)
== END | disposition home or self-care (01) ==
LOC: LAB 08:00
PROVIDERS: PCP Family Medicine; Referring Provider Nurse Practitioner Family; Visit Provider Nurse Practitioner Family
DX: R63.5 Abnormal weight gain (principal)
CPT/HCPCS: 36415; 82533

== ENCOUNTER → 2025-01-30 | Outpatient (CLI) | payer OTHER, SELFPAY | END | disposition home or self-care (01) | LOC: LABSPEC 16:01 | PROVIDERS: PCP Family Medicine; Referring Provider Nurse Practitioner Family; Visit Provider Nurse Practitioner Family | DX: Z12.4 Encounter for screening for malignant neoplasm of cervix (principal) | CPT/HCPCS: 87624; 88175; G0145 ==

== ENCOUNTER → 2025-02-06 | Outpatient (CLI) | payer OTHER, SELFPAY ==
--- NOTE | 2025-02-06 11:48 | US_ITS ---
PROCEDURE: PELVIC W/ TRANSVAGINAL 02/06/2025 REASON FOR EXAM: POST MENOPAUSAL BLEEDING TECHNIQUE: Procedure Code: [id number] Modality: US Procedure: PELVIC W/ TRANSVAGINAL COMPARISON: None FINDINGS: Uterus: 6.2 x 3.6 x 3.0 cm. 2 separate uterine fibroids are noted larger measures 1.5 cm Endometrium: Hyperechoic at 4 mm Right ovary: 3.4 x 2.9 x 2.3 cm, no suspicious mass, normal color Doppler flow Left ovary: Not visualized Other: No free fluid, bladder distends normally US/Pelvic w/ Transvaginal IMPRESSION: Small uterine fibroids Sonographically normal endometrium for age Sonographically normal right ovary Left ovary not visualized No free fluid Reading Location: [id number]
== END | disposition home or self-care (01) ==
LOC: US 11:47
PROVIDERS: PCP Family Medicine; Referring Provider Nurse Practitioner Family; Visit Provider Nurse Practitioner Family
DX: N95.0 Postmenopausal bleeding (principal)
CPT/HCPCS: 76830; 76856

== ENCOUNTER → 2025-02-08 | Outpatient (CLI) | payer OTHER, SELFPAY ==
[2025-02-08 10:17] LABS: Hematocrit 40.5 % (37-47); Hemoglobin 13.3 g/dL (12.0-15.0); Immature Granulocytes Count 0.020 X10^3/uL (0.0-0.0); Mean Corp Hgb Conc 32.8 g/dL (32-36); Mean Corpuscular Volume 95.3 fL (81-99); Mean Platelet Vol. 10.3 fl (6.2-12.0); NRBC Flagged by Analyzer 0 % (0-5); Platelet Count 277 K/mm3 (150-450); RBC Distribution Width CV 12.7 % (11.6-14.6); RBC Distribution Width SD 44.0 fl (35.1-43.9); Red Blood Count 4.25 M/mm3 (4.2-5.4); White Blood Count 4.5 K/mm3 (4.4-11.0)
[2025-02-08 10:47] LABS: AST(SGOT) 29 U/L (<=31); Alanine Aminotransfer ALT/SGPT 25 U/L (<=34); Albumin, Serum 4.5 g/dL (3.5-5.0); Alkaline Phosphatase 88 U/L (35-104); Anion Gap 13 (5-15); BUN 11 mg/dL (4-19); BUN/Creat Ratio 14.5 RATIO (10-20); Calcium,Total 9.4 mg/dL (7.6-11.0); Carbon Dioxide 23.1 mmol/L (21.0-32.0); Chloride 104 mmol/L (98-108); Cholesterol 222 mg/dL (<=200); Globulin 2.6 g/dL (2.2-4.2); Glucose 108 mg/dL (70-99); Low Density Lipoprotein Calc. 122 mg/dL; Potassium 4.4 mmol/L (3.3-5.1); Triglycerides 182 mg/dL; Very Low Density Lipoprotein 36 mg/dL (5-40); Vitamin D,25 Hydroxy 51.9 ng/mL (30-100); cholesterol:hdl ratio screen 3.50
== END | disposition home or self-care (01) ==
LOC: LAB 09:48
PROVIDERS: PCP Family Medicine; Referring Provider Nurse Practitioner Family; Visit Provider Nurse Practitioner Family
DX: Z00.01 Encounter for general adult medical examination with abnormal findings (principal); E55.9 Vitamin D deficiency, unspecified; R73.01 Impaired fasting glucose
CPT/HCPCS: 36415; 80053; 80061; 82306; 83036; 85025

== ENCOUNTER → 2025-02-20 | Outpatient (CLI) | payer OTHER, SELFPAY ==
--- NOTE | 2025-02-20 07:50 | BD_ITS ---
PROCEDURE: DEXA BONE DENSITY STUDY 02/20/2025 REASON FOR EXAM: F, age 59 y/o . Postmenopausal. TECHNIQUE: Procedure Code: BDDBD Modality: DX Procedure: DEXA BONE DENSITY STUDY COMPARISON: None FINDINGS: BMD and T-SCORES Lumbar spine: 0.926 g/cm2, T-score -1.1 Levels: L1 through L4 . Right femoral neck: 0.777 g/cm2, T-score -0.6 Femoral neck comparison data not recommended for monitoring change. Right total hip: 0.754 g/cm2, T-score -1.5 The World Health Organization has defined the following categories based on bone density: Normal bone density: T-score equal to or greater than -1.0 Osteopenia: T-score between -1.0 and -2.5 Osteoporosis: T-score equal to or less than -2.5 FRAX (or Comparable) Fracture Risk Assessment: 10 Year Probability of Fracture: Major Osteoporotic Fracture: 17% Hip Fracture: 0.9% (Note: FRAX is not to be reported in setting of normal range bone density, osteoporosis on DEXA, known history of osteoporosis, prior osteoporotic hip or vertebral fracture, or for any patient undergoing pharmacological treatment for bone loss.) The National Osteoporosis Foundation (NOF) recommends pharmacological treatment for patients with a FRAX 10-year risk of 3% or higher for a hip fracture, or 20% or higher for a major osteoporotic fracture, to prevent osteoporosis and reduce fracture risk. The patient does meet the pharmacological treatment recommendations for prevention of osteoporosis. BD/Dexa Bone Density Study IMPRESSION: OSTEOPENIA. Recommend follow-up as clinically warranted. Reading Location: [place] [id number]
== END | disposition home or self-care (01) ==
LOC: OPBD 07:41
PROVIDERS: PCP Nurse Practitioner Family; Referring Provider Nurse Practitioner Family; Visit Provider Nurse Practitioner Family
DX: M85.80 Other specified disorders of bone density and structure, unspecified site (principal); S72.002A Fracture of unspecified part of neck of left femur, initial encounter for closed fracture; M81.0 Age-related osteoporosis without current pathological fracture; X58.XXXA Exposure to other specified factors, initial encounter; Z78.0 Asymptomatic menopausal state
CPT/HCPCS: 77080

== ENCOUNTER → 2025-04-29 | Outpatient (CLI) | payer OTHER, SELFPAY ==
--- NOTE | 2025-04-29 11:42 | US_ITS ---
PROCEDURE: PELVIC W/ TRANSVAGINAL 04/29/2025 REASON FOR EXAM: POSTMENOPAUSAL BLEEDING. TECHNIQUE: Procedure Code: USPELTVAG Modality: US Procedure: PELVIC W/ TRANSVAGINAL COMPARISON: Ultrasound pelvis dated 02/06/2025 FINDINGS: Measurements: Uterus: 5.7 x 3.6 x 2.6 cm with a volume of 28 mL Endometrial Thickness: 0.3 cm Right Ovary: 3.0 x 1.6 x 2.9 cm with a volume of 7.4 mL. Left Ovary: Not visualized. Uterus: Retroflexed. Small fibroids measuring 1.2 x 1.5 x 0.7 cm and 0.8 x 0.6 x 0.7 cm. Cervix unremarkable. Endometrium: Hyperechoic. Right ovary: Unremarkable. Left ovary: Not visualized. Other: Urinary bladder volume is 419 mL. US/Pelvic w/ Transvaginal IMPRESSION: Small uterine fibroids detailed above. Left ovary was not visualized on this study. Retroflexed uterus. Reading Location: [place] [id number]
== END | disposition home or self-care (01) ==
LOC: OPUS 11:39
PROVIDERS: PCP Nurse Practitioner Family; Referring Provider Nurse Practitioner Women's Health; Visit Provider Nurse Practitioner Women's Health
DX: N95.0 Postmenopausal bleeding (principal)
CPT/HCPCS: 76830; 76856

== ENCOUNTER 2025-05-06 16:00 | Outpatient (RCR) | payer OTHER, SELFPAY ==
--- NOTE | 2025-01-01 17:20 | HP.PTEVAL ---
Patient's Visit Information Visit Information Visit Information: RUDI SHIN is a 59 year old F referred to Physical Therapy by LANCE Schwartz with a diagnosis of Mixed incontinence N39.46. Date of Evaluation: 01/01/25 Physical Therapist: Radha Johnson Visit Plan Frequency: 1x/Week Duration: 3 Months Plan: Rudi would benefit from skilled PT intervention to address her mixed incontinence and dyspareunia. She has pelvic floor tightness and weakness so we will utilize pelvic floor manual therapy and pelvic floor strengthening into our sessions. Continue 1 x week. Initiate pelvic floor strengthening once tightness more resolved. How is she doing with prone prop stretch for acute low back pain? Continue pelvic floor releases bilaterally and superiorly at urethral sphincter. Subjective Subjective: She is coming in for incontinence which has been happening 15+ years. Good days and bad days. She has a history of the women in her family having bladder issues. She is dealing with incontinence with standing up, lifting heavy objects, cough/sneeze. Sometimes she has urge incontinence as well. She wears a 4# pad a day. Sometimes she goes thru 2 pads a day and on a bad day she can have more leaking. Alcohol makes it worst and she can go thru 3-4 pads. Sometimes she can leak overnight. She has had problems with UTIs. Azo helps. She has had back problems since her mid 30s. Degenerative discs showed degenerative changes when she was 30. She is currently under a flare of her back pain. Recently had low back X-ray last week and still waiting on results. Injections in 2013 helped a bit. Low back pain averaging 6-8/10. 2017 left total hip replacement. Right hip is starting to hurt her more now. She has a lot of dryness with penetration. Dyspareunia 3/10 she thinks it is more superficially. She works at [employer]. Improve incontinence and intercourse pain. Pain low back: Pain Intensity (Out of 10): 6 Pain Intensity Range: 8 Objective Objective: Mild, moderate pelvic floor tightness bilaterally layer 2 and superiorly at urethral sphincter on right side LAYCOCK 3-/2/3/2 DIFFICULTY RELAXING BETWEEN CONTRACTIONS No evidence of cystocele or rectocele Leaking with bearing down on exam POPDI-6 2, CRAD-8 0, AMAURY-6 14 Goals Goal 1:: Rudi will be able to cough or sneeze without leaking. Goal Time Frame: 8-12 Weeks Goal 2:: Rudi will be able to delay using the restroom by 5 minutes to avoid any incontinence episodes. Goal Time Frame: 6-8 Weeks Goal 3:: Rudi will be able to participate in vaginal penetration without pain during or after. Goal Time Frame: 8-12 Weeks Goal 4:: Rudi's low back pain will be 1/10 to allow her to sit comfortably while doing work activities up to 2 hours at a time. Goal Time Frame: 4-6 Weeks Goal 5:: Rudi will not have to wear pads anymore to deal with spontaneous leaking thru the day. Goal Time Frame: 8-12 Weeks Rehabilitation Potential Physical Therapy Diagnosis: Dyspareunia , Low back pain Rehabilitation Potential: Good Anticipated Interventions Patient/Client Instruction: Educate patient on: Condition and Plan of Care For the Purpose of:: To improve muscle performance and motor function, To improve health and function and To improve self management Therapeutic Exercise to Include: Strength training, Coordination and Relaxation training For the Purpose of:: To improve muscle performance and motor function, To improve health and function and To improve self management Manual Therapy Techniques to Include: Trigger point massage, Mobilization and Soft tissue mobilization For the Purpose of:: To decrease pain, To improve muscle performance and motor function, To improve health and function and To improve self management Ultrasound (thermal/non thermal): Yes For the Purpose of:: To decrease pain, To improve muscle performance and motor function and To improve health and function Text: Thank you for the opportunity to evaluate your patient. For Medicare and Medicare HMO plans, please review the plan of care and approve it. It will need to be FAXED BACK to us at [phone] for Medicare purposes. For Medicare only, by signing this I certify the plan of care. Please let me know if there are questions or concerns regarding this plan of care. Physician Signature: Date:
--- NOTE | 2025-01-11 15:12 | HP.PTEVAL2_ITS ---
Patient's Visit Information Visit Information Visit Information: RUDI SHIN is a 59 year old F referred to Physical Therapy by LANCE Schwartz with a diagnosis of LEFT LUMBAR PAIN. Date of Evaluation: 01/11/25 Physical Therapist: Natanael Long, PT, Cert MDT, OCS Visit Plan Frequency: 2x /Week Duration: 4 Weeks Plan: PT INTERVTIONS APPLE EX'S ,DLS ,POSTURAL EX'S ,ACTIVITY MODIFICATION AND MODALTIES PRN Subjective Subjective: This 59 y/o female presents to physical therapy with left lumbar spine. Patient has had had left lumbar pain since December 17 ,getting OOB felt sharp pain in left lumbar . Patient waited ~ 1 week before seeing MANAGER FLOAT ,x-rays showed L2-3 ,L5 -S1 mod DDD. Seen chiropractor did adjustments on this past . Patient seeing Tammy pelvic floor. Aggravating factors sitting,bending ,standing. Alleviating walking,rest. Medication Meloxicam. ICE prn. Coughing/sneezing-. Bowel/bladder not related to back. Patient is able to sleep. No h/o trauma or injury. No prior tx .Patient has h/o pain management 2013 . Patient has h/o left VALDEZ 2016. Patient condition affects QOL and function. Patient goals to decrease pain. SOCIAL: VOCATION:Petroleum Production Engineer Pain Left Back: Intensity: 4 Pain Intensity Range: 10 Objective Objective: POSTURE: rounded shoulders head forward NEURO: denies paresthesia/tingling ,reflexes L3-4,L4-L5 ,L5-S1 2/3 SYMMETRIES: align ,scoliosis GAIT: reciprocal pattern PALAPTION: TTP left LUMBAR ROM: flexion min loss ,extension min loss ,side glides min loss FLEXABILITY: hamstrings min tight MMT: quads/hams 4/5 ,hip flexion 4/5 ,ankle 5/5 Special Tests Slump test left side: Negative Slump test right side: Negative Left Straight Leg Raise: Negative Right Straight Leg Raise: Negative Flexion - Mechanical Response: No effect Flexion - Symptoms During Testing: Increases Flexion - Symptoms After Testing: No worse Extension - Mechanical Response: No effect Extension - Symptoms During Testing: Increases Extension - Symptoms After Testing: No worse Right Side Glides - Mechanical Response: No effect Right Side [place] - Symptoms During Testing: No effect Right Side [place] - Symptoms After Testing: No effect Left Side [place] - Mechanical Response: No effect Left Side [place] - Symptoms During Testing: No effect Left Side [place] - Symptoms After Testing: No effect Flexion - Mechanical Response: No effect Flexion - Symptoms During Testing: Increases Flexion - Symptoms After Testing: No worse Extension - Mechanical Response: No effect Extension - Symptoms During Testing: Decreases Extension - Symptoms After Testing: Better Goals Goal 1:: Patient to be I with HEP for back to prophylaxis Goal Time Frame: 4-6 Weeks Goal 2:: Patient to improve lumbar ROM for function of recovery for put on shoes and ADLS Goal Time Frame: 4-6 Weeks Goal 3:: Patient to improve back oswestry score by 5 points to improve QOL and function Goal Time Frame: 4-6 Weeks Goal 4:: Patient to demonstrated 50% improvemnt with less pain and improved function Goal Time Frame: 4-6 Weeks Rehabilitation Potential Physical Therapy Diagnosis: Patient possible has left lumbar derangement with possible disc with pain worse with flexion ,sitting better with walking ,changes with position and motion testing thus benefit from skilled PT Rehabilitation Potential: Good Anticipated Interventions Patient/Client Instruction: Educate patient on: Condition and Plan of Care For the Purpose of:: To decrease pain, To increase ROM, To improve ability to perform ADL's, To increase tolerance to activity/condition/position, To improve performance and independence with ADL's, To improve ability of physical actions for home/community/work/leisure, To improve health of tissue, To decrease soft tissue restriction, To increase flexibility/ROM and To prevent re-injury Therapeutic Exercise to Include: Strength training, Postural training, Flexibilty training, Dynamic Lumbar Stabilization and Apple Exercises For the Purpose of:: To decrease pain, To increase ROM, To improve muscle performance and motor function, To increase tolerance to activity/condition/position, To improve ability of physical actions for home/community/work/leisure, To improve health of tissue, To decrease soft tis danny restriction, To increase flexibility/ROM, To reduce risk of recurrence and To improve tolerance to ADL's TENS: Yes IF ES: Yes Cryotherapy (ice pack, ice massage): Yes Thermo therapy (hot pack): Yes Ultrasound (thermal/non thermal): Yes For the Purpose of:: To decrease pain, To increase ROM, To improve health of tissue, To decrease soft tissue restriction and To increase flexibility/ROM text: Thank you for the opportunity to evaluate your patient. For Medicare and Medicare HMO plans, please review the plan of care and approve it. It will need to be FAXED BACK to us at [phone] for Medicare purposes. For Medicare only, by signing this I certify the plan of care. Please let me know if there are questions or concerns regarding this plan of care. Physician Signature: Date:
--- NOTE | 2025-01-31 13:10 | HP.PTREVAL_ITS ---
Re-Evaluation Intro: Mariaelena Nicole, GABBIE-C, It has been my pleasure to treat RUDI SHIN over the last 4 visits for Mixed incontinence N39.46. Please see the progress note below for an update on the physical therapy plan of care! Subjective Subjective: She states Mariaelena Nicole CUSTOMER ACCOUNT ADMINISTRATOR is going to order an US of uterus due to some spotting after using applicator to insert estrogen. CUSTOMER ACCOUNT ADMINISTRATOR thinks there may have been a skin abrasion with using applicator so advised patient to try without applicator and resume estrogen. Spotting resolved and didn't last more than a day. She feels she is making nice progress in PT. She was able to go until 3am with a dry pad so she takes that as progress. Low back pain today 07/16. Objective Objective/Function: Pelvic floor tightness lessening. Tightness right at introitus and layer 2-3 left side. She continues to make steady improvements and nice progress. Plan Plan Plan: Rudi would benefit from skilled PT intervention to address her mixed incontinence and dyspareunia. She has pelvic floor tightness and weakness so we will utilize pelvic floor manual therapy and pelvic floor strengthening into our sessions. Continue 1 x week. Add week 4 next visit. Continue pelvic floor releases bilaterally and superiorly at urethral sphincter another 1-2 sessions? Any change in dyspareunia? Balance/Gait/Functional tests Balance/Special Test Scores Oswestry Low Back Score: 25 Goals Goals Goal 1:: Rudi will be able to cough or sneeze without leaking. Goal Time Frame: 8-12 Weeks Goal 2:: Rudi will be able to delay using the restroom by 5 minutes to avoid any incontinence episodes. Goal Time Frame: 6-8 Weeks Goal 3:: Rudi will be able to participate in vaginal penetration without pain during or after. Goal Time Frame: 8-12 Weeks Goal 4:: Rudi's low back pain will be 1/10 to allow her to sit comfortably while doing work activities up to 2 hours at a time. Goal Time Frame: 4-6 Weeks Goal 5:: Rudi will not have to wear pads anymore to deal with spontaneous leaking thru the day. Goal Time Frame: 8-12 Weeks Anticipated Interventions Anticipated Interventions Patient/Client Instruction: Educate patient on: Condition and Plan of Care For the Purpose of:: To improve muscle performance and motor function, To improve health and function and To improve self management Therapeutic Exercise to Include: Strength training, Coordination and Relaxation training For the Purpose of:: To improve muscle performance and motor function, To improve health and function and To improve self management Manual Therapy Techniques to Include: Trigger point massage, Mobilization and Soft tissue mobilization For the Purpose of:: To decrease pain, To improve muscle performance and motor function, To improve health and function and To improve self management Ultrasound (thermal/non thermal): Yes For the Purpose of:: To decrease pain, To improve muscle performance and motor function and To improve health and function Re-Evaluation Ending Re-evaluation ending: Please do not hesitate to contact me at [phone] by phone or if you have questions or concerns regarding this new plan of care! Sincerely, Radha Johnson
--- NOTE | 2025-02-14 09:42 | HP.PTDCSUM_ITS ---
Discharge Summary D/C summary: It has been my pleasure to treat RUDI SHIN referred by Mariaelena Nicole, GABBIE- C, with the diagnosis of Mixed incontinence N39.46 for a total of 6 visit(s). Discharge Date: Please see the following information for a summary of their discharge status. Subjective Subjective: She is dryer day to day with less leaking (50% improved). Her low back really flared on Tuesday (just getting out of bed). No flare of her low back today. She is going to do a biopsy of her cervix on as the lining is a bit thickened. She finds she leaks with a cough or sneeze or sometimes just standing up from a chair. Pain low back: Pain Intensity (Out of 10): 3 Objective Objective/Function: Lessening pelvic floor tightness and nice progress overall with lessened leaking. Goals Goal 1:: Rudi will be able to cough or sneeze without leaking. Goal 2:: Rudi will be able to delay using the restroom by 5 minutes to avoid any incontinence episodes. Goal 3:: Rudi will be able to participate in vaginal penetration without pain during or after. Goal 4:: Rudi's low back pain will be 1/10 to allow her to sit comfortably while doing work activities up to 2 hours at a time. Goal 5:: Rudi will not have to wear pads anymore to deal with spontaneous leaking thru the day. Plan Plan: Rudi would benefit from skilled PT intervention to address her mixed incontinence and dyspareunia. She has pelvic floor tightness and weakness so we will utilize pelvic floor manual therapy and pelvic floor strengthening into our sessions. Continue 1 x week. Add week 6 next visit. Continue pelvic floor releases bilaterally and superiorly at urethral sphincter another 1-2 sessions? Any change in dyspareunia? D/C Information d/c sentence: If there are questions or concerns regarding this patient's physical therapy, please feel free to call me at [phone]. Thank you for the referral of this patient. Sincerely, Natanael Long, PT, Cert MDT, OCS Balance/Gait/Functional tests Balance/Special Test Scores Oswestry Low Back Score: 5
--- NOTE | 2025-02-15 14:30 | HP.PTDS(2)_ITS ---
Discharge Summary D/C Summary: It has been my pleasure to treat RUDI SHIN referred by Clare Pierre, BULL GANG WORKER ,SPORTS BOOK BOARD ATTENDANT, with the diagnosis of LEFT LUMBAR PAIN for a total of 9 visit(s). Discharge Date: 02/14/25 Please see the following information for a summary of their discharge status. Subjective Subjective: Back pain is feeling good No problem with bending ,lifting Would like to stand longer like doing dishes Overall Improvement % Improvement: 80 Objective Objective/Function/Assessment: POSTURE: rounded shoulders head forward NEURO: denies paresthesia/tingling ,reflexes L3-4,L4-L5 ,L5-S1 2/3 SYMMETRIES: align ,scoliosis GAIT: reciprocal pattern PALAPTION: TTP left LUMBAR ROM: flexion min loss ,extension min loss ,side glides min loss FLEXABILITY: hamstrings min tight MMT: quads/hams 4/5 ,hip flexion 4/5 ,ankle 5/5 Goals Patient Goals: Improve Mobility, Improve Function, Decrease Pain, Alleviate Pain, Walk Normal and Improve ROM Goal 1:: Patient to be I with HEP for back to prophylaxis Goal Progress: Goal Met Goal 2:: Patient to improve lumbar ROM for function of recovery for put on shoes and ADLS Goal Progress: Goal Met Goal 3:: Patient to improve back oswestry score by 5 points to improve QOL and function Goal Progress: Goal Met Goal 4:: Patient to demonstrated 50% improvemnt with less pain and improved function Goal Progress: Goal Met Plan Plan: D/C HOME PROGRAM D/C Information Discharge Comments: HEP d/c sentence: If there are questions or concerns regarding this patient's physical therapy, please feel free to call me at [phone]. Thank you for the referral of this patient. Sincerely, Natanael Long, PT, Cert MDT, OCS Balance/Special Test Scores Improvement % Improvement: 80
--- NOTE | 2025-05-06 17:15 | HP.PTDCSUM ---
Discharge Summary D/C summary: It has been my pleasure to treat RUDI SHIN referred by Mariaelena Nicole, GABBIE-C, with the diagnosis of Mixed incontinence N39.46 for a total of 10 visit(s). Discharge Date: 05/06/25 Please see the following information for a summary of their discharge status. Subjective Subjective: She had some pain with a pelvic ultrasound on both sides in her pelvic floor but she was very happy as she had much less pain with it compared to the last time in February. [place] still mildly painful but not as bad as it was when she first started. She is more conscious of sitting or standing and whether she is bearing down or doing a kegel and that has helped too with her incontinence. She feels 50% improved overall and ready for discharge. Pain low back: Pain Intensity (Out of 10): 3 Overall Improvement % Improvement: 50 Objective Objective/Function: She has shown nice progress in all areas reporting 50% improvement. She has met her max rehab potential and ready for discharge . Her pelvic floor distress inventory score improved since evaluation. Goals Goal 1:: Rudi will be able to cough or sneeze without leaking. 05/06/25 50% improved. 2 pads a day to now 1 pad a day. Goal Progress: Progressing Goal 2:: Rudi will be able to delay using the restroom by 5 minutes to avoid any incontinence episodes. 05/06/25 60% improved. Goal Progress: Progressing Goal 3:: Rudi will be able to participate in vaginal penetration without pain during or after. 05/06/25 80% improved with pain right at the opening. Goal Progress: Progressing Goal 4:: Rudi's low back pain will be 1/10 to allow her to sit comfortably while doing work activities up to 2 hours at a time. 05/06/25 40% improved. Pain continues to average 2-3/10 Goal Progress: Progressing Goal 5:: Rudi will not have to wear pads anymore to deal with spontaneous leaking thru the day. 05/06/25 She has gone from 2 pads a day to 1 pad a day. Goal Progress: Progressing Plan Plan: D/C from PT. D/C Information Discharge Comments: She will continue the exercises on her own at home. d/c sentence: If there are questions or concerns regarding this patient's physical therapy, please feel free to call me at [phone]. Thank you for the referral of this patient. Sincerely, Radha Johnson Balance/Gait/Functional tests Balance/Special Test Scores Oswestry Low Back Score: 5 Improvement % Improvement: 50
== END 2025-05-06 19:00 | disposition home or self-care (01) ==
LOC: PT 16:00
PROVIDERS: PCP Family Medicine; Referring Provider Nurse Practitioner Family; Visit Provider Nurse Practitioner Family
DX: M54.50 Low back pain, unspecified (principal); M25.552 Pain in left hip
CPT/HCPCS: 97035; 97110; 97112; 97140; 97162; 97530